=== PATIENT | male | born 1990 | race Caucasian/White ===

== ENCOUNTER 2020-12-22 09:30 | Emergency (ER) | payer BC ==
--- NOTE | 2020-12-22 10:10 | EDM.PDOC ---
ED HPI GENERAL MEDICAL PROBLEM - General Chief Complaint: Lower Extremity Injury/Pain Stated Complaint: L KNEE PAIN Time Seen by Provider: 12/22/20 09:56 Source of Information: Reports: Patient History Limitations: Reports: No Limitations - History of Present Illness INITIAL COMMENTS - FREE TEXT/NARRATIVE: HISTORY AND PHYSICAL: History of present illness: The patient is a 30-year-old male who presents to the emergency room with complaints of left lateral knee pain for 1 week when bending. He states that yesterday it started aching with walking. He denies any injury and cannot identify when the pain started exactly. He has not taken any obcd-cal-rhiugnb medications nor has he iced it or attempted any kind of elevation. 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 Patient denies any fever, chills, headache, change in vision, syncope or near syncope. Denies any chest pain, back pain, shortness of breath or cough. Denies any abdom inal pain, nausea, vomiting, diarrhea, constipation or dysuria. Has not noted any blood in urine or stool. Patient has been eating and drinking appropriately. Review of systems: As per history of present illness and below otherwise all systems reviewed and negative. Past medical history: As per history of present illness and as reviewed below otherwise noncontributory. Surgical history: As per history of present illness and as reviewed below otherwise noncontributory. Social history: See social history for further information Family history: As per history of present illness and as reviewed below otherwise noncontributory. Physical exam: General: Well developed and well nourished. Alert and orientated x 3. Nontoxic in appearance and in no acute distress. Vital signs are stable and have been reviewed by me. Nursing notes were reviewed. HEENT: Atraumatic, normocephalic, pupils equal and reactive bilaterally, negative for conjunctival pallor or scleral icterus, mucous membranes moist, TMs normal bilaterally, throat clear, neck supple, nontender, trachea midline. No drooling or trismus noted. No meningeal signs. No hot potato voice noted. Lungs: Clear to auscultation bilaterally. No wheezes, rales, or rhonchi. Chest nontender. Normal work of breathing, no accessory muscles used. Heart: S1S2, regular rate and rhythm without overt murmur, gallops, or rubs. No JVD. No peripheral edema Abdomen: Soft, nondistended, nontender. Normoactive bowel sounds. Negative for masses or costovertebral tenderness. Skin: Intact, warm, dry. No lesions or rashes noted. Hematologic: No petechiae or purpra. Mucosa appropriate color and normal nail bed color and refill. Extremities: Atraumatic, moves all extremities per self without difficulty or deficits, negative for cords or calf pain. Neurovascular unremarkable. Neuro: Awake, alert, oriented. Cranial nerves II through XII unremarkable. Cerebellum unremarkable. Motor and sensory unremarkable throughout. Exam nonfocal. Psychiatric: Mood and affect are appropriate. Normal thought process. Answering questions appropriately. Notes: *This patient was seen and evaluated during the 2019 SARS-CoV-2 novel coronavirus pandemic period. Community viral transmission is ongoing at time of this encounter and the emergency department is operating under pandemic response procedures. The patient's exam is benign except for mild tenderness on the left medial knee. No swelling or lateral left knee tenderness noted. The patient denies any swelling or discoloration in the last week. I will order a Toradol for pain control and a left knee x-ray. Patient is agreeable to this plan. 10: 57 left knee x-ray IMPRESSION:No acute fracture, subluxation or dislocation. No joint effusion is identified. Joint spaces are relatively well maintained. Incidental fabella. I have discussed the findings with the patient and the need for strengthening of his core to prevent knee injury. Have the patient take Motrin 600 mg 3 times a day for 5 days, apply ice several times a day to the knee, and do some upper thigh rolls. I have advised the patient that he should follow-up with a primary care for possible physical therapy for core stren gthening. I will discharge the patient home. The patient is agreeable to this plan. I have talked with the patient about today's findings, in addition to providing specific details for plan of care. Reassessment at the time of disposition demonstrates that the patient is in no acute distress. The patient is stable for discharge, counseling was provided and we discussed in great detail signs a nd symptoms that would prompt them to return to the Emergency Department. Medication, follow up and supportive care measures were reviewed and discussed. Voices understanding and is agreeable to plan of care. Denies any further questions or concerns at this time. Diagnostics: Left knee x-ray Therapeutics: Toradol IM Impression: IT band tendinitis Plan: 1. You were evaluated today on an emergent basis. Your left knee complaint was evaluated with an examination and a knee x-ray. Your left knee x-ray showed No acute fracture, subluxation or dislocation. No joint effusion is identified. Joint spaces are relatively well maintained. Incidental fabella. You most likely have Iliotibial band tendinitis with irritation to the surrounding muscle. Take Motrin 600 mg 3 times a day for the next 5 days. To prevent stomach upset you can take Pepcid [id number] daily. You can apply ice several times a day to the left lateral knee. You can use a roller on your upper lateral thigh to help with the pain. Once this pain has resolved you can use resistant bands to strengthen your hip and core for better knee management. 2. You can alternate Tylenol and ibuprofen as needed for pain and fever management. 3. We encourage you to follow up with your primary care provider and/or recommended specialist in the next few days for re-evaluation and further care/management. 4. If your symptoms should worsen, new symptoms develop or any of the signs and symptoms we discussed should arise please return to the emergency room or call 911 (if needed). Definitive disposition and diagnosis as appropriate pending reevaluation and review of above. Left Knee Pain Score (Numeric/FACES): 8 - Related Data Allergies Allergy/AdvReac Type Severity Reaction Status Date / Time No Known Allergies Allergy Verified 12/22/20 09:57 Home Meds: Home Meds . [No Known Home Meds] 12/22/20 [History] Review of Systems - Review of Systems Review Of Systems: Comprehensive ROS is negative, except as noted in HPI. ED EXAM, GENERAL - Physical Exam Exam: See Below (See dictation) Course - Vital Signs Last Recorded V/S: Last Vital Signs Temp 98 F 12/22/20 09:57 Pulse 87 12/22/20 09:57 Resp 16 12/22/20 09:57 BP 166/91 H 12/22/20 09:57 Pulse Ox 98 12/22/20 09:57 - Orders/Labs/Meds Meds: Medications Discontinued Medications Generic Name Dose Route Start Last Admin Trade Name Freq PRN Reason Stop Dose Admin Ketorolac Tromethamine 60 mg 12/22/20 10:14 12/22/20 10:55 Ketorolac 60 Mg/2 Ml Sdv IM 12/22/20 10:15 60 mg ONETIME ONE Administration Departure - Departure Time of Disposition: 11:02 Disposition: Home, Self-Care 01 Condition: Good Clinical Impression: Iliotibial band syndrome affecting left lower leg - Discharge Information *PRESCRIPTION DRUG MONITORING PROGRAM REVIEWED*: Not Applicable *COPY OF PRESCRIPTION DRUG MONITORING REPORT IN PATIENT [place]: Not Applicable Instructions: Iliotibial Bursitis Referrals: PCP,None [Primary Care Provider] - Forms: ED Department Discharge Additional Instructions: The following information is given to patients seen in the emergency department who are being discharged to home. This information is to outline your options for follow-up care. We provide all patients seen in our emergency department with a follow-up referral. The need for follow-up, as well as the timing and circumstances, are variable depending upon the specifics of your emergency department visit. If you don't have a primary care physician on staff, we will provide you with a referral. We always advise you to contact your personal physician following an emergency department visit to inform them of the circumstance of the visit and for follow-up with them and/or the need for any referrals to a consulting specialist. The emergency department will also refer you to a specialist when appropriate. This referral assures that you have the opportunity for follow-up care with a specialist. All of these measure are taken in an effort to provide you with optimal care, which includes your follow-up. Under all circumstances we always encourage you to contact your private physician who remains a resource for coordinating your care. When calling for follow-up care, please make the office aware that this follow-up is from your recent emergency room visit. If for any reason you are refused follow-up, please contact the [facility] Emergency Department at and asked to speak to the emergency department charge nurse. [facility] [address] [place] [address] [id number] [address] [id number] Plan: 1. You were evaluated today on an emergent basis. Your left knee complaint was evaluated with an examination and a knee x-ray. Your left knee x-ray showed No acute fracture, subluxation or dislocation. No joint effusion is identified. Joint spaces are relatively well maintained. Incidental fabella. You most likely have Iliotibial band tendinitis with irritation to the surrounding muscle. Take Motrin 600 mg 3 times a day for the next 5 days. To prevent stomach upset you can take Pepcid [id number] daily. You can apply ice several times a day to the left lateral knee. You can use a roller on your upper lateral thigh to help with the pain. Once this pain has resolved you can use resistant bands to strengthen your hip and core for better knee management. 2. You can alternate Tylenol and ibuprofen as needed for pain and fever management. 3. We encourage you to follow up with your primary care provider and/or recomme nded specialist in the next few days for re-evaluation and further care/management. 4. If your symptoms should worsen, new symptoms develop or any of the signs and symptoms we discussed should arise please return to the emergency room or call 911 (if needed). Sepsis Event Note (ED) - Evaluation Sepsis Screening Result: No Definite Risk - Focused Exam Vital Signs: Vital Signs Temp Pulse Resp BP Pulse Ox 12/22/20 09:57 98 F 87 16 166/91 H 98
[2020-12-22] MEDS ORDERED: Ketorolac 60 MG/2 ML SDV IM ONE (10:14)
--- NOTE | 2020-12-22 10:51 | CR ---
INDICATION: Knee pain. TECHNIQUE: Three views of the left knee. COMPARISON: None. IMPRESSION: No acute fracture, subluxation or dislocation. No joint effusion is identified. Joint spaces are relatively well maintained. Incidental fabella. Dictated by Bladimir Roque MD @ 12/22/2020 10:50:53 AM Dictated by: Bladimir Roque MD @ 12/22/2020 10:51:00 (Electronically Signed)
== END 2020-12-22 11:31 | disposition home or self-care (01) ==
LOC: MW.ED 09:30
DX: M76.32 Iliotibial band syndrome, left leg (principal)
CPT/HCPCS: 73562; 96372; 99283; J1885

== ENCOUNTER 2022-12-20 12:30 | Emergency (ER) | payer BC ==
[2022-12-20] MEDS ORDERED: Albuterol/Ipratropium 3.0-0.5 MG/3 ML Neb Soln NEB STA (13:29)
== END 2022-12-20 14:59 | disposition home or self-care (01) ==
LOC: MW.ED 12:30
DX: J20.9 Acute bronchitis, unspecified (principal); F17.210 Nicotine dependence, cigarettes, uncomplicated
CPT/HCPCS: 71046; 71046-26; 99283; J7620-GY

== ENCOUNTER 2023-07-07 14:11 | Emergency (ER) | payer BC ==
[2023-07-07] MEDS ORDERED: methylPREDNISolone Sodium Succinate 125 MG/2 ML SDV IVPUSH ONE (16:51)
[2023-07-07] MEDS ORDERED: Ketorolac 30 MG/ML SDV IVPUSH ONE (16:51)
[2023-07-07] MEDS ORDERED: Sodium Chloride 0.9% 1,000 ML IV ONE (16:51)
[2023-07-07 17:17] LABS: HEMATOCRIT 48.4 % (42.0-52.0); HEMOGLOBIN 16.2 g/dL (14.0-18.0); MEAN CORPUSCULAR HEMOGLOBIN 28.7 pg (28.0-32.0); MEAN CORPUSCULAR HGB CONC 33.5 g/dL (32.0-36.0); MEAN CORPUSCULAR VOLUME 85.8 fL (83.0-99.0); MEAN PLATELET VOLUME 8.9 fL (9.4-12.4); PLATELET COUNT,PLT 224 K/uL (150-400); RED BLOOD CELL COUNT 5.64 M/uL (4.52-5.90); WHITE BLOOD CELL COUNT,WBC 15.69 K/uL (3.9-11.3)
[2023-07-07 18:21] LABS: LYMPHOCYTES ABSOLUTE MAN 2.51 K/uL (1.00-4.80); LYMPHOCYTES PERCENT MAN 16 % (24-44); MONOCYTES ABSOLUTE MAN 1.57 K/uL (0.00-0.80); MONOCYTES PERCENT MAN 10 % (0-8); SEG NEUTROPHILS ABSOLUTE MAN 11.61 K/uL (1.80-7.70); SEG NEUTROPHILS PERCENT MAN 74 % (41-71)
[2023-07-07 18:35] LABS: A/G RATIO 0.7 (0.9-1.6); ALBUMIN 3.5 g/dL (3.4-5.0); BILIRUBIN TOTAL 0.6 mg/dL (0.2-1.0); CALCIUM 9.1 mg/dL (8.5-10.1); CARBON DIOXIDE,CO2 28.7 mmol/L (21.0-32.0); CREATININE 1.1 mg/dL (0.8-1.3); EST CRCL DRUG DOSING (CG) 115.23 mL/min; POTASSIUM,K 4.3 mmol/L (3.5-5.1); PROTEIN TOTAL,TP 8.5 g/dL (6.4-8.2)
[2023-07-07 18:45] LABS: CORONAVIRUS COVID-19 NAA NEGATIVE (NEGATIVE); INFLUENZA A NAA NEGATIVE (NEGATIVE); INFLUENZA B NAA NEGATIVE (NEGATIVE); RESPIRATORY SYNCYTIAL VIR NAA NEGATIVE (NEGATIVE)
[2023-07-07] MEDS ORDERED: Iopamidol 755 MG/ML 500 ML Multipack Bottle IVPUSH STA (18:54)
[2023-07-07] MEDS ORDERED: Clindamycin Phosphate in D5W 600 MG in Premix Bag 1 BAG IV ONE ×2 (18:54)
== END 2023-07-07 20:14 | disposition home or self-care (01) ==
LOC: MW.ED 14:11
DX: J03.80 Acute tonsillitis due to other specified organisms (principal); B96.89 Other specified bacterial agents as the cause of diseases classified elsewhere; Z20.822 Contact with and (suspected) exposure to COVID-19
CPT/HCPCS: 0241U; 36415; 70491; 71045; 80053; 83605; 85025; 86308; 87040; 87651; 96361; 96365; 96375; 99284; J0736; J1885; J2930; J7030; Q9967

== ENCOUNTER 2024-10-31 17:48 | Emergency (ER) | payer BC ==
[2024-10-31] MEDS: Amoxicillin/Clavulanate K 875-125 MG Tab PO ONE (20:31)
[2024-10-31] MEDS: Doxycycline Monohydrate 100 MG Cap PO ONE (20:31)
[2024-10-31] MEDS: Sodium Chloride 0.9% 1,000 ML IV ONE (20:52)
[2024-10-31] MEDS: Acetaminophen 500 MG Tab PO ONE (20:53)
[2024-10-31] MEDS: Ketorolac 30 MG/ML SDV IVPUSH ONE (20:53)
[2024-10-31 21:01] LABS: BASOPHILS ABSOLUTE AUTO 0.07 K/uL (0.00-0.20); BASOPHILS PERCENT AUTO 0.7 % (0.0-1.0); EOSINOPHILS ABSOLUTE AUTO 0.06 K/uL (0.00-0.45); EOSINOPHILS PERCENT AUTO 0.6 % (0.0-6.0); HEMATOCRIT 42.8 % (42.0-52.0); HEMOGLOBIN 14.4 g/dL (14.0-18.0); IMMATURE GRAN ABSOLUTE AUTO 0.05 K/uL (0.00-0.05); IMMATURE GRAN PERCENT AUTO 0.5 % (0.0-0.4); LYMPHOCYTES ABSOLUTE AUTO 1.34 K/uL (1.00-4.80); LYMPHOCYTES PERCENT AUTO 13.9 % (24.0-44.0); MEAN CORPUSCULAR HEMOGLOBIN 28.1 pg (28.0-32.0); MEAN CORPUSCULAR HGB CONC 33.6 g/dL (32.0-36.0); MEAN CORPUSCULAR VOLUME 83.4 fL (83.0-99.0); MEAN PLATELET VOLUME 8.7 fL (9.4-12.4); MONOCYTES ABSOLUTE AUTO 1.24 K/uL (0.00-0.80); MONOCYTES PERCENT AUTO 12.9 % (0.0-8.0); NEUTROPHILS ABSOLUTE AUTO 6.85 K/uL (1.80-7.70); NEUTROPHILS PERCENT AUTO 71.4 % (41.0-71.0); PLATELET COUNT,PLT 193 K/uL (150-400); RED BLOOD CELL COUNT 5.13 M/uL (4.52-5.90); WHITE BLOOD CELL COUNT,WBC 9.61 K/uL (3.9-11.3)
[2024-10-31 21:29] LABS: A/G RATIO 0.9 (0.9-1.6); ALBUMIN 3.6 g/dL (3.4-5.0); BILIRUBIN TOTAL 0.4 mg/dL (0.2-1.0); CALCIUM 9.2 mg/dL (8.5-10.1); CARBON DIOXIDE,CO2 28.1 mmol/L (21.0-32.0); CREATININE 1.2 mg/dL (0.8-1.3); EST CRCL DRUG DOSING (CG) 104.65 mL/min; POTASSIUM,K 4.2 mmol/L (3.5-5.1); PROTEIN TOTAL,TP 7.8 g/dL (6.4-8.2)
[2024-10-31 21:32] LABS: LACTIC ACID 1.6 mmol/L (0.4-2.0)
== END 2024-10-31 22:06 | disposition home or self-care (01) ==
LOC: MW.ED 17:48
DX: J18.9 Pneumonia, unspecified organism (principal); Z75.3 Unavailability and inaccessibility of health-care facilities; F17.200 Nicotine dependence, unspecified, uncomplicated
CPT/HCPCS: 36415; 71045; 80053; 83605; 83690; 85025; 87040; 87428; 96361; 96374; 96375; 99283; A9270; J1100; J1885; J7030